=== PATIENT | female | born 1995 | race Caucasian/White ===

== ENCOUNTER → 2023-11-22 11:21 | Outpatient (BNVA) | payer OTHER, SELFPAY | PROVIDERS: Visit Provider Nurse Practitioner Women's Health | DX: Z01.419 Encounter for gynecological examination (general) (routine) without abnormal findings (principal) | CPT/HCPCS: 87624 ==

== ENCOUNTER 2024-01-18 13:48 | Outpatient (CLI) | payer OTHER, SELFPAY ==
[2024-01-18 14:40] LABS: Cortisol Random 6.93 ug/dL (2.47-19.5); Testosterone Total 10.9 ng/dL (8.4-48.1); Thyroid Stimulating Hormone 0.91 uIU/mL (0.27-4.20)
[2024-01-18 15:06] LABS: Estradiol 39.8 pg/mL; Progesterone 0.148 ng/mL; Prolactin 15.41 ng/mL (4.8-23.3)
[2024-01-19 10:10] LABS: T3 Total 98 ng/dL (76-181)
[2024-01-20 11:09] LABS: Dehydroepiandrosterone Sulfate 201 mcg/dL (14-349)
== END 2024-01-18 13:49 | disposition home or self-care (01) ==
LOC: LAB 13:50
PROVIDERS: PCP Internal Medicine; Visit Provider Internal Medicine
DX: E28.2 Polycystic ovarian syndrome (principal); Z01.419 Encounter for gynecological examination (general) (routine) without abnormal findings
CPT/HCPCS: 82533; 82627; 82670; 84144; 84146; 84403; 84439; 84443; 84480